=== PATIENT | female | born 1980 | race Caucasian/White ===

== ENCOUNTER 2017-06-18 10:59 | Emergency (ER) | payer OTHER ==
[2017-06-18 11:21] VITALS: BP 140/87
--- NOTE | 2017-06-18 12:12 | UC ---
Abdominal Pain Female HPI - HPI Summary HPI Summary: conducted in [place]o. Patient states she has had left abdominal pain for the past year but it has increased in intensity for the past week. She states pain is like a sore and it radiates to left leg and left side of her trunk with burning sensation. Denies flank pain, urinary frequency, fever, nausea vomiting or change in bowel frequency, consistency or appearance. States pain is present regardless of meals. She states she had an abdominal sonogram a year ago which was normal and was diagnosed with gastritis. States lying down on floor and elevating legs helps her relieve the pain somewhat - History of Current Complaint Chief Complaint: UCGeneralIllness Stated Complaint: LEFT SIDE PAIN NAUSEA Time Seen by Provider: 06/18/17 11:41 Hx Last Menstrual Period: 05/30/17 Allergies/Adverse Reactions: Allergies Allergy/AdvReac Type Severity Reaction Status Date / Time No Known Allergies Allergy Verified 06/18/17 11:12 PMH/Surg Hx/FS Hx/Imm Hx Previously Healthy: Yes - Surgical History Surgical History: Yes Surgery Procedure, Year, and Place: x3 - Family History Known Family History: Positive: None - Social History Alcohol Use: None Substance Use Type: None Smoking Status (MU): Never Smoked Tobacco Review of Systems Constitutional: Negative Skin: Negative Eyes: Negative ENT: Negative Respiratory: Negative Cardiovascular: Negative Gastrointestinal: Abdominal Pain Genitourinary: Negative Musculoskeletal: Negative Is Patient Immunocompromised?: No All Other Systems Reviewed And Are Negative: Yes Physical Exam Triage Information Reviewed: Yes Appearance: Well-Appearing Vital Signs: Initial Vital Signs Temp 98.3 F 06/18/17 11:12 Pulse 76 06/18/17 11:12 Resp 16 06/18/17 11:12 BP 140/87 06/18/17 11:12 Pulse Ox 98 06/18/17 11:12 Vital Signs Reviewed: Yes Eye Exam: Normal Eyes: Positive: Conjunctiva Clear ENT Exam: Normal Neck exam: Normal Neck: Positive: Supple Respiratory Exam: Normal Cardiovascular Exam: Normal Abdomen Description: Positive: No Organomegaly - tender to palpation on Left lower quadrant, no rebound, no guarding, Soft Musculoskeletal Exam: Normal Abd Pain Female Course/Dx - Course Course Of Treatment: chronic LLQ pain, referred to GI and PCP - Differential Dx/Diagnosis Provider Diagnoses: LLQ abdominal pain Discharge - Discharge Plan Condition: Stable Disposition: HOME Print Language: NEW [place] Referrals: No Primary Care Phys,NOPCP [Primary Care Provider] - Guanako Stephenson MD [Medical Doctor] -
== END 2017-06-18 12:52 | disposition home or self-care (01) ==
LOC: UCEAST 10:59
DX: R10.32 Left lower quadrant pain (principal)
CPT/HCPCS: 99212; G0463

== ENCOUNTER 2017-11-25 09:18 | Emergency (ER) | payer SELFPAY ==
[2017-11-25 10:28] LABS: ABS Basophils 0.1 10^3/ul (0-0.2); ABS Eosinophils 0.5 10^3/ul (0-0.6); ABS Lymphocytes 2.3 10^3/ul (1.0-4.8); ABS Monocytes 0.4 10^3/ul (0-0.8); ABS Nucleated RBC 0 10^3/ul; Eosinophil % 7.3 % (0-6); Hematocrit 39 % (35-47); Hemoglobin 12.7 g/dl (12.0-16.0); Lymphocyte % 37.4 % (25-47); Mean Corpuscular HGB Conc 33 g/dl (31-36); Mean Corpuscular Hemoglobin 26 pg (27-31); Mean Corpuscular Volume 80 fL (80-97); Mean Platelet Volume 7.9 um3 (7.4-10.4); Nucleated Red Blood Cells % 0; Platelet Count 245 10^3/ul (150-450); Red Blood Count 4.85 10^6/ul (4.0-5.4); Red Cell Distribution Width 15 % (10.5-15); White Blood Count 6.2 10^3/ul (3.5-10.8)
[2017-11-25 10:30] LABS: Urine Appearance Clear; Urine Blood Negative (Negative); Urine Color Yellow; Urine Ketones Negative (Negative); Urine Protein Negative (Negative); Urine Specific Gravity 1.014 (1.010-1.030); Urine Urobilinogen Negative (Negative)
[2017-11-25 10:43] LABS: EGFR Non-African American 101.9 (>60)
[2017-11-25] MEDS ORDERED: Ketorolac INJ* 30 MG/ML 1 ML VIAL IV PUSH ONE (11:51)
--- NOTE | 2017-11-25 12:54 | RAD ---
Indication: Left lower quadrant pain. Real-time sonography of the pelvis was performed. The study was performed utilizing endovaginal technique. The uterus measures 6.9 x 3.2 x 4.8 cm. Endometrial echo measures 5 mm. Right ovary measures 3.9 x 1.3 x 1.8 cm. Left ovary is not visualized. IMPRESSION: Left ovary not visualized. Otherwise no adnexal masses.
[2017-11-25] MEDS ORDERED: Iohexol 300* (CONTRAST) 10 ML SDV IV ONE (13:45)
--- NOTE | 2017-11-25 14:37 | RAD ---
INDICATION: Left lower quadrant pain COMPARISON: CT August 20, 2015 TECHNIQUE: Axial source images were obtained from the hemidiaphragms to the symphysis pubis following administration of oral and intravenous contrast. 97 mL Omnipaque 300 was utilized. Coronal and sagittal reconstructed images were acquired. Lung bases: The lung bases are clear. Liver: The liver is normal in size. There are no masses. There is no ductal dilatation. Gallbladder: There are no calcified gallstones. There is no evidence of wall thickening or pericholecystic fluid. Spleen: The spleen is normal in size. There are no masses. Pancreas: There is no focal pancreatic mass or ductal dilatation. Adrenal glands: There is no evidence of adrenal mass. Kidneys: The kidneys are normal in size and position. There are prompt nephrograms and there is prompt excretion bilaterally. There are no renal parenchymal masses. There is no evidence of nephrolithiasis. Adenopathy: There is no evidence of adenopathy by size criteria. Fluid collections: There are no free or localized fluid collections. Vessels:There are no significant atherosclerotic changes involving the aorta. There is no focal aneurysm. The iliac vessels are normal in caliber. The IVC appears normal. GI tract: There are no acute CT bowel findings. There is no obstruction. The stomach and small bowel appear normal. The lower GI tract is normal. The cecum, ileocecal valve, and terminal ileum appear normal. The appendix is visualized and appear normal. Pelvic organs: The uterus and adnexa appear normal Bladder: There are no bladder masses. Abdominal and pelvic soft tissues: The extraperitoneal abdominal and pelvic soft tissues appear normal.. Osseous structures: There are no acute osseous findings. Other: None IMPRESSION: NO ACUTE CT FINDINGS. NO MASS OR INFLAMMATORY CHANGES
[2017-11-25 16:27] VITALS: BP 119/71
--- NOTE | 2017-11-25 18:54 | ED ---
David Almodovar Jennifer scribed for Dong Sanches MD on 11/25/17 at 1144 . GI/ HPI - HPI Summary HPI Summary: The patient is a 37 year old female who presents with left sided pain for one year that worsened yesterday. The patient explains that it starts in the front and radiates to the back. She states she saw a doctor in [place] two months ago but denies any imaging was done. Patient additionally complains of nausea and vomiting. She denies hematuria, dysuria, diarrhea, and bloody stools. The patient has had three sections and believes the pain may be related to them. A high school french teacher was used during this visit. Patients was at bedside to help provide some history. - History of Current Complaint Chief Complaint: EDFlankPain Time Seen by Provider: 11/25/17 09:44 Stated Complaint: ABD PAIN Hx Obtained From: Dry Box Tender Hx Last Menstrual Period: 05/30/17 Onset/Duration: Still Present, Worse Since - yesterday Timing: Constant Severity: Moderate Current Severity: Moderate Pain Intensity: 4 Location of Pain: Radiates to: - flank, LLQ, Flank Pain Radiates to: Flank - left Associated Signs and Symptoms: Positive: Other: - abdominal pain, flank pain, nausea, vomiting. NEG: nausea, vomiting Additional Signs & Symptoms: Positive: Other: - abdominal pain, flank pain, nausea, vomiting. NEG: nausea, vomiting Aggravating Factor(s): Movement Alleviating Factor(s): Nothing - Allergy/Home Medications Allergies/Adverse Reactions: Allergies Allergy/AdvReac Type Severity Reaction Status Date / Time No Known Allergies Allergy Verified 06/18/17 11:12 PMH/Surg Hx/FS Hx/Imm Hx Endocrine/Hematology History: Denies: Hx Diabetes, Hx Thyroid Disease Cardiovascular History: Denies: Hx Hypertension Respiratory History: Denies: Hx Asthma, Hx Chronic Obstructive Pulmonary Disease (COPD) GI History: Denies: Hx Ulcer - Surgical History Surgery Procedure, Year, and Place: x3 Infectious Disease History: No Infectious Disease History: Denies: Hx Hepatitis, Hx Human Immunodeficiency Virus (HIV), History Other Infectious Disease, Traveled Outside the [place] in Last 30 Days - Family History Known Family History: Negative: Hypertension Family History: Reviewed and non-contributory - Social History Alcohol Use: None Substance Use Type: Reports: None Smoking Status (MU): Never Smoked Tobacco Review of Systems Negative: Fever, Chills Negative: Erythema Negative: Sore Throat Negative: Chest Pain Negative: Shortness Of Breath, Cough Gastrointestinal: Negative - Bloody stool Positive: Abdominal Pain, Vomiting, Nausea. Negative: Diarrhea Negative: dysuria, hematuria Negative: Myalgia, Edema Negative: Rash Neurological: Negative - Dizziness All Other Systems Reviewed And Are Negative: Yes Physical Exam - Summary Physical Exam Summary: Constitutional: Well-developed, Well-nourished, Alert. (-) Distressed Skin: Warm, Dry HENT: Normocephalic; Atraumatic Eyes: Conjunctiva normal Neck: Musculoskeletal ROM normal neck. (-) JVD, (-) Stridor, (-) Tracheal deviation Cardio: Rhythm regular, rate normal, Heart sounds normal; Intact distal pulses; The pedal pulses are 2+ and symmetric. Radial pulses are 2+ and symmetric. (-) Murmur Pulmonary/Chest wall: Effort normal. (-) Respiratory distress, (-) Wheezes, (-) Rales Abd: Soft, LLQ tenderness. (-) Distension, (-) Guarding, (-) Rebound Musculoskeletal: (-) Edema Lymph: (-) Cervical adenopathy Neuro: Alert, Oriented x3 Psych: Mood and affect Normal Triage Information Reviewed: Yes Vital Signs On Initial Exam: Initial Vitals Temp Pulse Resp BP Pulse Ox 97.6 F 72 16 121/74 100 11/25/17 09:23 11/25/17 09:23 11/25/17 09:23 11/25/17 09:23 11/25/17 09:23 Vital Signs Reviewed: Yes Diagnostics - Vital Signs Vital Signs Temp Pulse Resp BP Pulse Ox 11/25/17 09:23 97.6 F 72 16 121/74 100 - Laboratory Lab Results: Lab Results 11/25/17 11/25/17 11/25/17 Range/Units 10:10 10:10 10:10 WBC 6.2 (3.5-10.8) 10^3/ul RBC 4.85 (4.0-5.4) 10^6/ul Hgb 12.7 (12.0-16.0) g/dl Hct 39 (35-47) % MCV 80 (80-97) fL MCH 26 L (27-31) pg MCHC 33 (31-36) g/dl RDW 15 (10.5-15) % Plt Count 245 (150-450) 10^3/ul MPV 7.9 (7.4-10.4) um3 Neut % (Auto) 48.1 (38-83) % Lymph % (Auto) 37.4 (25-47) % Flagler % (Auto) 5.7 (0-7) % Eos % (Auto) 7.3 H (0-6) % Baso % (Auto) 1.5 (0-2) % Absolute Neuts (auto) 3.0 (1.5-7.7) 10^3/ul Absolute Lymphs (auto) 2.3 (1.0-4.8) 10^3/ul Absolute Monos (auto) 0.4 (0-0.8) 10^3/ul Absolute Eos (auto) 0.5 (0-0.6) 10^3/ul Absolute Basos (auto) 0.1 (0-0.2) 10^3/ul Absolute Nucleated RBC 0 10^3/ul Nucleated RBC % 0 Sodium 137 L (139-145) mmol/L Potassium 4.1 (3.5-5.0) mmol/L Chloride 106 (101-111) mmol/L Carbon Dioxide 26 (22-32) mmol/L Anion Gap 5 (2-11) mmol/L BUN 14 (6-24) mg/dL Creatinine 0.66 (0.51-0.95) mg/dL Est GFR ( Amer) 131.1 (>60) Est GFR (Non-Af Amer) 101.9 (>60) BUN/Creatinine Ratio 21.2 H (8-20) Glucose 89 (70-100) mg/dL Lactic Acid (0.5-2.0) mmol/L Calcium 9.2 (8.6-10.3) mg/dL Total Bilirubin 0.80 (0.2-1.0) mg/dL AST 21 (13-39) U/L ALT 19 (7-52) U/L Alkaline Phosphatase 67 (34-104) U/L C-Reactive Protein 1.88 (< 5.00) mg/L Total Protein 7.3 (6.4-8.9) g/dL Albumin 4.2 (3.2-5.2) g/dL Globulin 3.1 (2-4) g/dL Albumin/Globulin Ratio 1.4 (1-3) Lipase 13 (11.0-82.0) U/L Beta HCG, Quant Pending Urine Color Yellow Urine Appearance Clear Urine pH 6.0 (5-9) Ur Specific Bigler 1.014 (1.010-1.030) Urine Protein Negative (Negative) Urine Ketones Negative (Negative) Urine Blood Negative (Negative) Urine Nitrate Negative (Negative) Urine Bilirubin Negative (Negative) Urine Urobilinogen Negative (Negative) Ur Leukocyte Esterase Negative (Negative) Urine Glucose Negative (Negative) 11/25/17 Range/Units 10:10 WBC (3.5-10.8) 10^3/ul RBC (4.0-5.4) 10^6/ul Hgb (12.0-16.0) g/dl Hct (35-47) % MCV (80-97) fL MCH (27-31) pg MCHC (31-36) g/dl RDW (10.5-15) % Plt Count (150-450) 10^3/ul MPV (7.4-10.4) um3 Neut % (Auto) (38-83) % Lymph % (Auto) (25-47) % Flagler % (Auto) (0-7) % Eos % (Auto) (0-6) % Baso % (Auto) (0-2) % Absolute Neuts (auto) (1.5-7.7) 10^3/ul Absolute Lymphs (auto) (1.0-4.8) 10^3/ul Absolute Monos (auto) (0-0.8) 10^3/ul Absolute Eos (auto) (0-0.6) 10^3/ul Absolute Basos (auto) (0-0.2) 10^3/ul Absolute Nucleated RBC 10^3/ul Nucleated RBC % Sodium (139-145) mmol/L Potassium (3.5-5.0) mmol/L Chloride (101-111) mmol/L Carbon Dioxide (22-32) mmol/L Anion Gap (2-11) mmol/L BUN (6-24) mg/dL Creatinine (0.51-0.95) mg/dL Est GFR ( Amer) (>60) Est GFR (Non-Af Amer) (>60) BUN/Creatinine Ratio (8-20) Glucose (70-100) mg/dL Lactic Acid 0.5 (0.5-2.0) mmol/L Calcium (8.6-10.3) mg/dL Total Bilirubin (0.2-1.0) mg/dL AST (13-39) U/L ALT (7-52) U/L Alkaline Phosphatase (34-104) U/L C-Reactive Protein (< 5.00) mg/L Total Protein (6.4-8.9) g/dL Albumin (3.2-5.2) g/dL Globulin (2-4) g/dL Albumin/Globulin Ratio (1-3) Lipase (11.0-82.0) U/L Beta HCG, Quant Urine Color Urine Appearance Urine pH (5-9) Ur Specific Bigler (1.010-1.030) Urine Protein (Negative) Urine Ketones (Negative) Urine Blood (Negative) Urine Nitrate (Negative) Urine Bilirubin (Negative) Urine Urobilinogen (Negative) Ur Leukocyte Esterase (Negative) Urine Glucose (Negative) Result Diagrams: 11/25/17 10:10 11/25/17 10:10 Lab Statement: Any lab studies that have been ordered have been reviewed, and results considered in the medical decision making process. - CT CT Abd/Pel CT Interpretation: No Acute Changes - NO ACUTE CT FINDINGS. NO MASS OR INFLAMMATORY CHANGES. Dr. Sanches has reviewed this report. CT Interpretation Completed By: Radiologist - Additional Comments Diagnostic Additional Comments: Transvaginal US. Interpreted by a radiologist. IMPRESSION: Left ovary not visualized. Otherwise no adnexal masses. Dr. Sanches has reviewed this report. GIGU Course/Dx - Course Course Of Treatment: The patient is a 37 year old female who presents with left sided pain for one year that worsened yesterday. In the ED course, the patient was given Toradol. Transvaginal US and CT Abd/Pel obtained. The patient is diagnosed with chronic abdominal pain. The patient was discharged with instructions to attend an appoint on 11/29/17, at [facility]. - Diagnoses Provider Diagnoses: Chronic abdominal pain Discharge - Sign-Out/Discharge Documenting (check all that apply): Discharge/Admit/Transfer - Discharge Plan Condition: Stable Disposition: HOME Prescriptions: Naproxen [Naproxen 500 mg tab] 500 mg PO Q8HR #30 tablet Print Language: AUSTRALIAN Referrals: [facility] of [facility] [Outside] - 3 Days (You have been referred to the [facility] to see Dr. Brisa Cuadra. We have scheduled you an appointment for Wednesday, November 29, 2017 at 10:30 a.m. The clinic is located on the 3rd floor of the [facility] at [address] [place] [address]. If you need to adjust your appointment, or need assistance to arrange transportation please call the clinic at [phone]. Plan to arrive to your appointment 15 minutes early and expect the appointment to take up to 1 1/2 hours. If you are at a new address or have a new phone number, please call the clinic to update your information. Please bring the following to your appointment: - Insurance Card: Your most recent insurance card(s) - Photo identification: [place] ID; As[employer] Worker Helper's licenses, state photo ID cards or student ID - Medication: Bring your medication bottles or bring a current list of your medications including prescribed, [id number] medications and supplements, and herbs. - Copay if applicable. The clinic accepts the following forms of payment: Post, Check & Credit (Visa, MasterCard, AMEX, Discover). We look forward to meeting all of your healthcare needs. Sincerely, The [facility] ) No Primary Care Phys,NOPCP [Primary Care Provider] - Additional Instructions: You have an appointment at the [facility] on 11/29/2017, at 10: 15 AM on the THIRD FLOOR. Please bring with you 1) INS card, 2) Photo ID, 3) List of medications. The documentation as recorded by the David matthew Jennifer accurately reflects the service I personally performed and the decisions made by me, Dong Sanches MD.
== END 2017-11-25 16:25 | disposition home or self-care (01) ==
LOC: ED 09:18
DX: R10.32 Left lower quadrant pain (principal); G89.29 Other chronic pain
CPT/HCPCS: 36415; 74177; 76830; 80053; 81003; 83605; 83690; 84702; 85025; 86140; 96374; 96375; 99284; J1885; Q9967